=== PATIENT | female | born 1985 | race African-American/Black ===

== ENCOUNTER 2021-06-26 19:33 | Emergency (ER) | payer SELFPAY ==
[~2021-06-26] VITALS: Ht 157.5 cm; Wt 66.0 kg
[2021-06-26 21:16] VITALS: BP 118/40
[2021-06-26] MEDS ORDERED: ACETAMINOPHEN 325MG TABLET PO ONE (21:30)
[2021-06-26 21:57] LABS: CLARITY URINE CLEAR (CLEAR); COLOR URINE YELLOW (YELLOW); KETONES URINE NEGATIVE (NEGATIVE); LEUKOCYTE ESTERASE URINE NEGATIVE (NEGATIVE); NITRITE URINE NEGATIVE (NEGATIVE); OCCULT BLOOD URINE NEGATIVE (NEGATIVE); PROTEIN URINE TRACE (NEGATIVE)
[2021-06-26 22:01] LABS: CHLORIDE 107 mEq/L (98-107)
[2021-06-26 22:02] LABS: BASOPHILS % 0.5 % (0.0-2.0); EOSINOPHILS % 0.3 % (0.0-5.0); HEMATOCRIT. 39.5 % (36.0-48.0); HEMOGLOBIN. 13.7 g/dL (12.0-16.0); LYMPHOCYTES % 21.3 % (20.0-50.0); MEAN CORPUSCULAR HEMOGLOBIN 32.2 pg (28.0-32.0); MEAN CORPUSCULAR VOLUME 93.1 fL (81.0-99.0); MEAN PLATELET VOLUME 8.2 fl (7.4-10.4); MONOCYTES % 7.5 % (2.0-8.0); NEUTROPHILS % 70.4 % (40.0-76.0); PLATELET 258 x1000/uL (130-400); RED BLOOD CELL COUNT 4.24 mill/uL (4.2-5.4); RED CELL DISTRIBUTION WIDTH 13.4 % (11.6-14.6)
[2021-06-26 22:05] LABS: PROTHROMBIN TIME 10.6 sec (9.6-11.0)
[2021-06-26 22:25] LABS: B-HCG QUANTITATIVE 25575 mIU/mL (<3)
== END 2021-06-26 23:28 | disposition home or self-care (01) ==
LOC: ER 19:33
DX: O99.892 Other specified diseases and conditions complicating childbirth (principal); R10.84 Generalized abdominal pain; G89.11 Acute pain due to trauma; Z3A.18 18 weeks gestation of pregnancy; O26.892 Other specified pregnancy related conditions, second trimester; R03.0 Elevated blood-pressure reading, without diagnosis of hypertension; Y04.2XXA Assault by strike against or bumped into by another person, initial encounter; Y93.89 Activity, other specified; Y92.89 Other specified places as the place of occurrence of the external cause; Y07.59 Other non-family member, perpetrator of maltreatment and neglect
CPT/HCPCS: 36415; 76705; 76805; 80053; 81003; 84702; 85025; 86850; 86900; 99284